=== PATIENT | female | born 1980 | race Caucasian/White ===

== ENCOUNTER 2021-02-26 19:55 | Emergency (ER) | payer OTHER ==
[~2021-02-26] VITALS: Ht 170.2 cm; Wt 140.9 kg
[~2021-02-26 19:55] MED LIST: KETO15CR2 TP; NO HOME MEDS; OLME1TAB22 PO
[2021-02-26 20:31] LABS: BASOPHILS % (AUTO) 0.8 % (0-1); EOSINOPHILS # (AUTO) 0.1 X10'3 (0-0.9); EOSINOPHILS % (AUTO) 1.5 % (0-6); HEMATOCRIT 36.8 % (35.0-45.0); HEMOGLOBIN 11.4 g/dl (12.0-16.0); LYMPHOCYTES # (AUTO) 1.9 X10'3 (1.1-4.8); LYMPHOCYTES % (AUTO) 33.9 % (21-51); MEAN CORPUSCULAR VOLUME 67.7 FL (78-98); MEAN PLATELET VOLUME 7.9 FL (7.4-10.4); MONOCYTES # (AUTO) 0.5 X10'3 (0-0.9); MONOCYTES % (AUTO) 8.7 % (2-12); NEUTROPHILS # (AUTO) 3.1 X10'3 (1.8-7.7); NEUTROPHILS % (AUTO) 55.1 % (42-75); PLATELET COUNT 365 X10'3 (140-440); RED BLOOD COUNT 5.44 X10'6 (4.20-5.60); RED CELL DISTRIBUTION WIDTH 19.2 % (11.5-14.5); WHITE BLOOD COUNT 5.6 X10'3 (4.5-11.0)
[2021-02-26 20:43] LABS: ALANINE AMINOTRANSFERASE 22 U/L (12-78); ALBUMIN 3.7 G/DL (3.4-5.0); ALBUMIN/GLOBULIN RATIO 0.9 (1.1-1.5); ALKALINE PHOSPHATASE 88 IU/L (46-116); ANION GAP 11 (8-16); ASPARTATE AMINO TRANSFERASE 22 U/L (10-37); BILIRUBIN,TOTAL 0.2 MG/DL (0.1-1.0); BLOOD UREA NITROGEN 10 MG/DL (7-18); BUN/CREATININE RATIO 12.3 (6.6-38.0); CALCIUM 8.5 MG/DL (8.5-10.1); CHLORIDE 104 MMOL/L (99-107); CREATININE 0.81 MG/DL (0.40-0.90); GLUCOSE 177 MG/DL (70-104); POTASSIUM 4.1 MMOL/L (3.5-5.1); SODIUM 140 MMOL/L (135-145); TOTAL PROTEIN 7.9 G/DL (6.4-8.2); eGFR 78 ML/MIN
[2021-02-26 21:25] LABS: PLATELET ESTIMATE NORMAL
[2021-02-26 21:27] LABS: ANISOCYTOSIS 2+; ELLIPTOCYTES 1+; MICROCYTOSIS 2+
[2021-02-26 21:44] LABS: PARTIAL THROMBOPLASTIN TIME 26 SECONDS (22-32)
[2021-02-26 21:46] LABS: D-DIMER < 0.19 MG/L FEU (0-0.50)
[2021-02-26] MEDS ORDERED: apixaban 5mg tablet PO STA (22:21)
[2021-02-26] MEDS ORDERED: enoxaparin 100mg/ml syringe SUBCUT ONE (22:25)
[2021-02-26] MEDS ORDERED: ketorolac trometh inj. 60 MG/2 ML VIAL IM ONE (23:35)
[2021-02-26] MEDS ORDERED: APIX5TAB3 PO (23:39)
[2021-02-27 01:11] VITALS: BP 127/88
== END 2021-02-27 01:13 ==
LOC: ER 19:56
DX: R07.89 Other chest pain (principal); R06.02 Shortness of breath; I10 Essential (primary) hypertension; E11.9 Type 2 diabetes mellitus without complications; F41.9 Anxiety disorder, unspecified; Z86.711 Personal history of pulmonary embolism; Z87.442 Personal history of urinary calculi; Z90.49 Acquired absence of other specified parts of digestive tract; Z98.890 Other specified postprocedural states; Z56.0 Unemployment, unspecified; Z88.6 Allergy status to analgesic agent; Z79.2 Long term (current) use of antibiotics; Z79.899 Other long term (current) drug therapy
CPT/HCPCS: 36415; 71045; 80053; 83880; 84484; 85008; 85025; 85379; 85610; 85730; 93005; 96372; 99285; J1885